=== PATIENT | female | born 1955 | race Caucasian/White ===

== ENCOUNTER 2023-10-08 16:07 | Outpatient (CLI) | payer MEDICARE, MEDICAID ==
[2023-10-08 16:44] LABS: ABG BASE EXCESS -1.9 mmol/L (-2.0-2.0); ABG HCO3 20.9 mmol/L (22.0-26.0); ABG OXYGEN SATURATION 97.4 % (94-97); ABG PCO2 (T) 30.5 mmHg (32.0-45.0); ABG PH (T) 7.454 (7.350-7.450); ABG PO2 (T) 88.8 mmHg (75.0-100.0); ALLEN'S TEST POSITIVE; FCOHb 0.4 % (0.0-3.9); FHHb 2.6 % (0.0-5.0); FMetHb 0.1 % (0.0-1.5); FO2Hb 96.9 % (94-97); MODE ROOM AIR; TOTAL HEMOGLOBIN 14.3 G/dl (12.0-16.0)
[2023-10-08 17:25] VITALS: PULSE 84; RESP 16; O2SAT 97
== END 2023-10-08 23:59 | disposition home or self-care (01) ==
LOC: RT 16:07
PROVIDERS: ATTEND Family Medicine
DX: R94.2 Abnormal results of pulmonary function studies (principal); R06.02 Shortness of breath
CPT/HCPCS: 36600; 82803; 85018; 94010; 94727; 94729; 94760